=== PATIENT | male | born 1995 | race Two or more races ===

== ENCOUNTER 2024-01-05 22:23 | Emergency (ER) | payer OTHER ==
[~2024-01-05] VITALS: Ht 195.6 cm; Wt 159.7 kg
[2024-01-05] MEDS: KETOROLAC TROMETH 30 MG/ML 1ML VIAL IV ONE (00:34)
[2024-01-05] MEDS: MORPHINE SULFATE 4 MG/ML SYR/VIAL IV ONE (00:55)
[2024-01-05] MEDS: ONDANSETRON HCL 4 MG/2 ML VIAL IV ONE (00:55)
[2024-01-06 00:09] VITALS: TEMP 98.8
[2024-01-06 00:10] VITALS: PULSE 100; RESP 11; O2SAT 96
[2024-01-06] MEDS: KETAMINE 50mg/ML 10ml Vial 10 ML ONE (00:33)
[2024-01-06] MEDS: KETAMINE 50mg/ML 1ml syringe IV ONE (00:56)
[2024-01-06] MEDS ORDERED: IBUP-1455 PO (03:37)
[2024-01-06 03:45] VITALS: BP 136/78; PULSE 69; RESP 12; O2SAT 91
== END 2024-01-06 04:08 | disposition home or self-care (01) ==
LOC: ER 22:23
DX: M24.411 Recurrent dislocation, right shoulder (principal); E66.01 Morbid (severe) obesity due to excess calories; Z68.41 Body mass index [BMI] 40.0-44.9, adult; Z98.890 Other specified postprocedural states; Z79.899 Other long term (current) drug therapy
CPT/HCPCS: 23650; 73030; 96374; 96375; 99285; J1885; J2270; J2405

== ENCOUNTER 2024-07-30 18:34 | Emergency (ER) | payer MEDICAID ==
[~2024-07-30] VITALS: Ht 193 cm; Wt 160.3 kg
[~2024-07-30 18:34] MED LIST: IBUP-1455 PO
--- NOTE | 2024-07-30 19:06 | DVH ---
CLINICAL INDICATION: INJURY R/O FX TECHNIQUE: 3 radiographic views of the right ankle were obtained. Comparison: None FINDINGS/IMPRESSION: There is no evidence of acute fracture or dislocation. The visualized joint space is well maintained. The alignment is anatomical. There is no radiopaque foreign body.
--- NOTE | 2024-07-30 21:05 | ED.PDOC ---
Musculoskeletal HPI Comments 28-year-old male presents to ER with complaints of right ankle pain x1 day. Patient reports that he rolled his right ankle while walking down his driveway at 9:00 a.m. prior to arrival to ER and has since been experiencing 4/10 pain with associated swelling to right ankle/right foot. Denies use of medications for current symptoms. States he is able to bear minimal weight on right leg due to right ankle/right foot pain. Denies numbness/tingling or any further symptoms/complaints Chief Complaint: Lower Extremity Time Seen by MD: 18:40 Primary Care Provider: UNKNOWN Reviewed Notes: Nurses Notes, Medications, Allergies Allergies: Coded Allergies: NO KNOWN ALLERGIES (Unverified , 01/05/24) Home Meds Active Scripts Ibuprofen (Ibuprofen) 800 Mg Tab, 1 TAB PO TID PRN, #30 TAB 0 Refills Prov:JACI REDD 07/30/24 Ibuprofen Micronized (Ibuprofen) 800 Mg Tab, 800 MG PO Q8HP PRN, #30 TAB prn pain, take with food Prov:LUIS ALFREDO MEAD MD 01/06/24 Information Source: Patient Mode of Arrival: Wheelchair Past Medical History PAST MEDICAL HISTORY: Denies Surgical History: Hernia Repair Family History Family History: Unknown Social History Smoker: Non-Smoker Alcohol: Occasionally Drugs: Denies Drug Use Lives In: Home Constitutional: denies: chills, diaphoresis, fatigue, fever, malaise, sweats, weakness, others EENTM: denies: blurred vision, double vision, ear bleeding, ear discharge, ear drainage, ear pain, ear ringing, eye pain, eye redness, hearing loss, mouth pain, mouth swelling, nasal discharge, nose bleeding, nose congestion, nose pain, photophobia, tearing, throat pain, throat swelling, voice changes, others Respiratory: denies: cough, hemoptysis, orthopnea, SOB at rest, shortness of breath, SOB with excertion, stridor, wheezing, others Cardiovascular: denies: chest pain, dizzy spells, diaphoresis, Dyspnea on exertion, edema, irregular heart beat, left arm pain, lightheadedness, palpitations, PND, syncope, others Gastrointestinal: denies: abdomen distended, abdominal pain, blood streaked bowels, constipated, diarrhea, dysphagia, difficulty swallowing, hematemesis, melena, nausea, poor appetite, poor fluid intake, rectal bleeding, rectal pain, vomiting, others Genitourinary: denies: burning, dysuria, flank pain, frequency, hematuria, incontinence, penile discharge, penile sore, pain, testicle pain, testicle swelling, urgency, others Neurological: denies: dizziness, fainting, headache, left sided numbness, left sided weakness, numbness, paresthesia, pre-existing deficit, right sided numbness, right sided weakness, seizure, speech problems, tingling, tremors, weakness, others Musculoskeletal: reports: others (As stated in HPI) Integumetry: reports: others (As stated in HPI) Allergic/Immunocompromised: denies: Difficulty Healing, Frequent Infections, Hives, Itching, others Hematologic/Lymphatic: denies: anemia, blood clots, easy bleeding, easy bruising, swollen glands, others Endocrine: denies: excessive hunger, excessive sweating, excessive thirst, excessive urination, flushing, intolerance to cold, intolerance to heat, unexplained weight gain, unexplained weight loss, others Psychiatric: denies: anxiety, bipolar disorder, depression, hopeless, panic disorder, schizophrenia, sleepless, suicidal, others Physical Exam General Appearance: No Apparent Distress, Obese HEENT: PERRL/EOMI Neck: Full Range of Motion, Non-Tender, Normal Respiratory: Chest Non-Tender, Lungs Clear, No Accessory Muscle Use, No Respiratory Distress, Normal Breath Sounds Cardiovascular: No Murmur, No Gallop, Regular Rate/Rhythm Breast Exam: Deferred Gastrointestinal: NOT DONE Genitalia: Deferred Pelvic: Deferred Rectal: Deferred Extremities: Normal capillary refill, Normal range of motion Musculoskeletal : Extremity Location: Ankle (TTP/mild swelling noted to right lateral malleolus and centralized to dorsal surface of right foot. No further skin changes noted. Patient able to bear minimal weight on right leg due to pain localized to right lateral malleolus and right foot. Pulses intact) Neurologic: Alert, No Motor Deficits, Normal Affect, Normal Mood, No Sensory Deficits Cerebellar Function: Normal Reflexes: Normal Skin: Dry, Normal Color, Warm Peripheral Pulses: 2+ dorsalis pedis (R), 2+ dorsalis pedis (L) Lymphatic: No Adenopathy Was a procedure done? Was a procedure done?: No Sedation Sedation?: No Differential Diagnosis EXT Differential Diagnosis: Fracture, Dislocation, Neurovascular injury X-Ray, Labs, Meds, VS Vital Signs Date Time Temp Pulse Resp B/P (MAP) Pulse Ox O2 Delivery O2 Flow Rate FiO2 07/30/24 19:33 118 20 96 Room Air 07/30/24 19:33 98.9 118 20 123/87 (99) 96 98.9 07/30/24 18:42 98.9 118 20 123/87 (99) 96 98.9 PATIENT: ELENA ANDERSENACCT: [id number]: [id number] : 1995 LOC: ER ROOM / BED: / AGE / SEX: 28 / M ADM STATUS: REG ER SERVICE [id number] ORDERING PHYSICIAN: JACI REDD PROCEDURE(s): RANKL - R ANKLE 3 VIEW REASON: INJURY R/O FX ORDER NUMBER(s): [id number], ACCESSION NUMBER(s): [id number] CLINICAL INDICATION: INJURY R/O FX TECHNIQUE: 3 radiographic views of the right ankle were obtained. Comparison: None FINDINGS/IMPRESSION: There is no evidence of acute fracture or dislocation. The visualized joint space is well maintained. The alignment is anatomical. There is no radiopaque foreign body. ATED BY: MICKI YOUNG DO DICTATED DATE/TIME: 07/30/241903 SIGNED BY: MICKI YOUNG DO SIGNED DATE/TIME: 07/30/241903 CC: Right ankle x-ray reviewed Right foot x-ray reviewed Patient neurovascularly intact Fernando wrap applied Advised on re-x-ray of right foot in one week if symptoms do not improve Crutches ordered, patient educated on proper use. Was advised on use at all times Advised on rest/no strenuous activity, elevation and alternate ice on/off as needed for pain/swelling Advised to follow up with PCP and orthopedics in 1-2 days Patient verbalized understanding and agreeable with current plan of care Advised to return to ER immediately if symptoms worsen Images Reviewed?: Images reviewed and evaluated by me (No acute fractures) Time of 1ST Reevaluation: 20:44 Reevaluation 1ST: N/A Patient Education/Counseling: Diagnosis, Treatment, Prognosis, Need For Follow Up Family Education/Counseling: No Family Present Departure 1 Departure Time of Disposition: 21:04 Impression: Primary Impression: Right ankle sprain Qualified Codes: S93.401A - Sprain of unspecified ligament of right ankle, initial encounter Additional Impression: Right foot sprain Qualified Codes: S93.601A - Unspecified sprain of right foot, initial encounter Disposition: HOME / SELF CARE / HOMELESS Condition: Stable e-Prescriptions Ibuprofen (Ibuprofen) 800 Mg Tab 1 TAB PO TID PRN, #30 TAB 0 Refills Prov: JACI REDD 07/30/24 Discharged With: Friend Critical Care Note Critical Care Time?: No Stability Stability form required: No Heart Score Heart Score: Heart Score Response (Comments) Value History N/A 0 EKG N/A 0 Age N/A 0 Risk Factors N/A 0 Troponin N/A 0 Total 0 JACI REDD July 30, 2024 21:05
[2024-07-30] MEDS ORDERED: IBUP-1456 PO (21:06)
[2024-07-30 22:21] VITALS: BP 154/85; PULSE 107; RESP 21; TEMP 98.2; O2SAT 98
--- NOTE | 2024-07-31 16:06 | DVH ---
EXAM: XY R FOOT 3 VIEW XRAY CLINICAL INDICATION: pain TECHNIQUE: XY R FOOT 3 VIEW XRAY Comparison: None FINDINGS/IMPRESSION: There is no evidence of acute fracture or dislocation. The visualized joint space is well maintained. The alignment is anatomical. There is no radiopaque foreign body.
== END 2024-07-30 22:24 | disposition home or self-care (01) ==
LOC: ER 18:37
DX: S93.401A Sprain of unspecified ligament of right ankle, initial encounter (principal); S93.601A Unspecified sprain of right foot, initial encounter; F10.90 Alcohol use, unspecified, uncomplicated; Z98.890 Other specified postprocedural states; Z79.899 Other long term (current) drug therapy; W18.49XA Other slipping, tripping and stumbling without falling, initial encounter; Y93.01 Activity, walking, marching and hiking; Y92.488 Other paved roadways as the place of occurrence of the external cause; Y99.8 Other external cause status; Y90.9 Presence of alcohol in blood, level not specified
CPT/HCPCS: 73610; 73630